=== PATIENT | female | born 1965 | race Caucasian/White ===

== ENCOUNTER 2022-05-16 15:29 | Inpatient (IN) | payer BC, OTHER ==
[~2022-05-16] VITALS: Ht 157.5 cm; Wt 71.7 kg
[2022-05-16 17:57] LABS: HEMOGLOBIN 10.6 gm/dl (12.3-15.3); RED BLOOD COUNT 3.45 M/UL (4.00-5.10); WHITE BLOOD COUNT 14.6 K/UL (4.5-11.0)
[2022-05-16 18:19] LABS: BUN/CREATININE RATIO 15 (0-10)
[2022-05-16] MEDS ORDERED: ALPRAZOLAM0.5 MG PO (18:30)
[2022-05-16] MEDS ORDERED: PERCOCET 5-3251 EACH PO (18:31)
[2022-05-16] MEDS ORDERED: IBU800 MG PO (18:31)
[2022-05-16] MEDS ORDERED: ONDANSETRON HCL4 MG PO (18:31)
[2022-05-16] MEDS ORDERED: CEFDINIR300 MG PO (18:32)
[2022-05-17 02:43] LABS: HEMOGLOBIN 10.2 gm/dl (12.3-15.3); RED BLOOD COUNT 3.35 M/UL (4.00-5.10)
[2022-05-17 03:40] LABS: BUN/CREATININE RATIO 16 (0-10)
[2022-05-17] MEDS ORDERED: LIORESAL TAB 1010 MG PO (10:19)
--- NOTE | 2022-05-17 18:55 | NUR ---
provided incentive spirometer and provided education. patient using with no problem
[2022-05-18 06:12] LABS: HEMOGLOBIN 10.3 gm/dl (12.3-15.3); RED BLOOD COUNT 3.37 M/UL (4.00-5.10); WHITE BLOOD COUNT 11.5 K/UL (4.5-11.0)
[2022-05-18 06:25] LABS: BUN/CREATININE RATIO 14 (0-10)
[2022-05-19 06:49] LABS: HEMOGLOBIN 11.4 gm/dl (12.3-15.3); RED BLOOD COUNT 3.68 M/UL (4.00-5.10); WHITE BLOOD COUNT 12.3 K/UL (4.5-11.0)
[2022-05-19 07:22] LABS: BUN/CREATININE RATIO 16 (0-10)
[2022-05-20 05:48] LABS: HEMOGLOBIN 11.4 gm/dl (12.3-15.3); RED BLOOD COUNT 3.88 M/UL (4.00-5.10); WHITE BLOOD COUNT 13.3 K/UL (4.5-11.0)
[2022-05-20 06:15] LABS: BUN/CREATININE RATIO 21 (0-10)
== END 2022-05-20 15:20 | disposition home or self-care (01) | DRG 871 ==
LOC: ER1 15:29 → CDU 18:06 → MED SURG 4 18:06
PROVIDERS: Emergency Medicine; Internal Medicine; ADMIT Internal Medicine
DX: B37.7 Candidal sepsis (principal); J18.9 Pneumonia, unspecified organism; J81.1 Chronic pulmonary edema; Z20.822 Contact with and (suspected) exposure to COVID-19; J90 Pleural effusion, not elsewhere classified; R18.8 Other ascites; B37.49 Other urogenital candidiasis; K22.89 Other specified disease of esophagus; F41.9 Anxiety disorder, unspecified; F41.0 Panic disorder [episodic paroxysmal anxiety]; Z90.49 Acquired absence of other specified parts of digestive tract
CPT/HCPCS: 36415; 71045; 80048; 80053; 81001; 82550; 82553; 83605; 83735; 83880; 84100; 84484; 85025; 85027; 86140; 87040; 87086; 89055; 93005; 94640; 94760; 96361; 96372; 96374; 96375; 96376; 97161; 97165; 99285; C9113; G0378; J0696; J1650; J1940; J2185; J2405; U0002